=== PATIENT | male | born 1950 | race Caucasian/White ===

== ENCOUNTER 2021-02-05 20:24 | Emergency (ER) | payer MEDICARE, SELFPAY ==
[2021-02-05 20:30] VITALS: BP 163/89; PULSE 73; RESP 18; TEMP 36.4; O2SAT 100
--- NOTE | 2021-02-05 20:38 | ED.GENADULT ---
HPI - General Adult General Chief complaint: Urogenital-Male Stated complaint: Unable to urinate Time Seen by Provider: 02/05/21 20:27 History of Present Illness HPI narrative: Patient is 70-year-old gentleman who presents the emergency department chief complaint of urinary retention. The patient reports he has had no problems before with urinary retention is regarding catheter before in the past patient reports he sees urology. Patient states he needs a catheter badly Related Data Allergies Allergy/AdvReac Type Severity Reaction Status Date / Time No Known Allergies Allergy Mild Unverified 07/22/11 22:27 Review of Systems Review of Systems: Narrative: A 10 system review of systems was completed on the patient and is negative except for what is stated in the HPI. Nursing and ancillary documentation was reviewed. [facility] Family History Family History Mother Patient's mother is Sibling Patient's sister is in good health Father Acute myocardial infarction Social History Social History Smoking status: Never smoker Alcohol intake: never Exam Narrative: Exam Narrative: GENERAL: Well-appearing, well-nourished, and in no acute distress. HEAD: Normocephalic, atraumatic. EYES: PERRLA and EOMI. ENT: Nares clear, no rhinorrhea or epistaxis. Mucous membranes moist. NECK: Supple. CHEST: Clear to auscultation. No respiratory distress. HEART: Regular rate and rhythm. No murmur heard. Normal peripheral pulses. ABDOMEN: Soft, nontender, nondistended, normal active bowel sounds. EXTREMITIES: Normal range of motion. No edema. SKIN: Warm, dry, no rash. NEURO: No focal deficits. Alert and oriented x3. PSYCH: Normal mood and affect. Course Vital Signs Vital signs: Vital Signs Temperature 36.4 C 02/05/21 20:30 Pulse Rate 73 02/05/21 20:30 Respiratory Rate 18 02/05/21 20:30 Blood Pressure 163/89 H 02/05/21 20:30 Pulse Oximetry 100 02/05/21 20:30 Temperature 36.4 C 02/05/21 20:30 Pulse Rate 73 02/05/21 20:30 Respiratory Rate 18 02/05/21 20:30 Blood Pressure 163/89 H 02/05/21 20:30 Pulse Oximetry 100 02/05/21 20:30 Medical Decision Making Vital Signs Vital Signs: Vital Signs Temperature 36.4 C 02/05/21 20:30 Pulse Rate 73 02/05/21 20:30 Respiratory Rate 18 02/05/21 20:30 Blood Pressure 163/89 H 02/05/21 20:30 Pulse Oximetry 100 02/05/21 20:30 Temperature 36.4 C 02/05/21 20:30 Pulse Rate 73 02/05/21 20:30 Respiratory Rate 18 02/05/21 20:30 Blood Pressure 163/89 H 02/05/21 20:30 Pulse Oximetry 100 02/05/21 20:30 Lab Data Labs: Lab Results 02/05/21 Range/Units 20:42 Urine Color Straw (Yellow) Urine Appearance Clear (Clear) Urine pH 7.0 (5.0-9.0) Ur Specific [place] 1.008 (1.001-1.035) Urine Protein Negative (Negative) mg/dL Urine Glucose (UA) Negative (Negative) mg/dL Urine Ketones Trace (Negative) mg/dL Ur Blood (Man) 3+ H (Negative) Urine Nitrate Negative (Negative) Urine Bilirubin Negative (Negative) Urine Urobilinogen Negative (<2.0) mg/dL Leukocyte Esterase Rfl Negative (Negative) JEREMY/UL Urine RBC >75 H (0-2) /hpf Urine WBC 0-3 /hpf Discharge Plan Discharge Clinical Impression: Acute urinary retention Patient Disposition: Home, Self-Care Condition: Stable Instructions: Antibiotic Form, Mendoza Catheter Placement and Care (ED), Urinary Retention in Men (ED) Prescriptions: No Action finasteride 5 mg tablet 5 mg PO DAILY Qty: 90 RF: 4 rosuvastatin 10 mg tablet 10 mg PO DAILY Qty: 90 RF: 4 tamsulosin 0.4 mg capsule 0.4 mg PO DAILY Qty: 90 RF: 4 Follow-up/Referrals: Luis Carlos Louie MD [Primary Care Provider] - Time of Disposition: 21:03
[2021-02-05 20:54] LABS: Add Urine Microscopic? YES; Appearance Urine Clear (Clear); Bilirubin Urine Negative (Negative); Blood Urine 3+ (Negative); Color Urine Straw (Yellow); Glucose Urine UA Negative (Negative); Ketones Urine Trace mg/dL (Negative); Leukocyte Esterase Ur Negative LEU/UL (Negative); Nitrate Urine Negative (Negative); Protein Urine Negative (Negative); RBC Urine >75 /hpf (0-2); Specific Grav Ur 1.008 (1.001-1.035); Urobilinogen Urine Negative mg/dL (<2.0); WBC Urine 0-3 /hpf
[2021-02-05 21:30] VITALS: BP 160/71; PULSE 70; RESP 16; O2SAT 100
== END 2021-02-05 21:30 | disposition home or self-care (01) ==
PROVIDERS: Emergency Provider Emergency Medicine; PCP Internal Medicine
DX: R33.9 Retention of urine, unspecified (principal)
CPT/HCPCS: 51702; 81001; 99283

== ENCOUNTER 2022-06-04 10:09 | Emergency (ER) | payer MEDICARE, SELFPAY ==
[2022-06-04 10:12] VITALS: BP 148/77; PULSE 101; RESP 18; TEMP 36.6; O2SAT 99
[2022-06-04 10:43] VITALS: BP 147/81; PULSE 80; RESP 17; O2SAT 98
[2022-06-04 11:17] LABS: Mucus Urine Rare /lpf; RBC Urine 0-2 /hpf (0-2); WBC Urine 0-3 /hpf
--- NOTE | 2022-06-04 11:18 | ED.MALEGU ---
HPI - Male Genitourinary General Chief complaint: Urogenital-Male Stated complaint: urinary retention Time Seen by Provider: 06/04/22 10:48 History of Present Illness HPI Narrative: Patient is a 71-year-old male here for evaluation of urinary retention this morning. Yesterday he had a normal urine stream, but notes this morning he has not had a void yet, and notes some pressure/fullness in his suprapubic region. notes that he has a history of frequent episodes of urinary retention due to his enlarged prostate, for which he follows with Dr. Akins, and he has required a Mendoza catheter in the past. At time my evaluation, Mendoza catheter was placed by nursing staff, and patient is now asymptomatic. Denies any fevers, chills, nausea, vomiting, upper abdominal pain. Related Data Allergies Allergy/AdvReac Type Severity Reaction Status Date / Time No Known Allergies Allergy Mild Verified 06/04/22 10:42 Review of Systems Review of Systems: Gen: Denies fevers or chills Eyes: Denies eye pain or visual change ENT: Denies congestion Respiratory: Denies shortness of breath or cough CV: Denies chest pain or palpitations GI: Denies abdominal pain nausea, emesis or diarrhea : Reports urinary retention. Musculoskeletal: Denies back pain or muscle pain Neuro: Denies numbness, tingling, weakness or focal weakness Skin: Denies rash Except as documented, all other systems reviewed and negative PMFSH Past Medical History Medical History Encounter for screening for malignant neoplasm of colon Screening for metabolic disorder Family History Family History Mother Patient's mother is Sibling Patient's sister is in good health Father Acute myocardial infarction Social History Social History Smoking status: Never smoker Alcohol intake: never Exam Narrative: APPEARANCE: Well appearing, no pain in distress, well-nourished. Head: Normocephalic and atraumatic. EYES: PERRLA/EOMI, conjunctivae clear NOSE: No nasal drainage EARS: External ear normal in appearance THROAT: Oropharynx is clear. Mucous membranes are moist. NECK: Supple. No adenopathy, no masses. RESPIRATORY: Airway patent, respirations nonlabored. Clear to auscultation bilaterally, no rales, rhonchi, wheezing. CARDIOVASCULAR: Regular rate and rhythm without murmurs, rubs, or gallops. ABDOMINAL: Normoactive bowel sounds. Soft, nontender, nondistended. No rebound tenderness or guarding. : Mendoza bag in place, draining clear yellow urine MUSCULOSKELETAL: Extremities are warm and well-perfused. Moves all extremities well. No edema. NEURO: Normal speech. No focal neurologic deficits. SKIN: Skin is warm and dry. No rashes. PSYCHIATRIC: Normal affect/mood. Course Vital Signs Vital signs: Vital Signs Temperature 97.8 F 06/04/22 10:12 Pulse Rate 101 H 06/04/22 10:12 Respiratory Rate 18 06/04/22 10:12 Blood Pressure 148/77 H 06/04/22 10:12 Pulse Oximetry 99 06/04/22 10:12 Oxygen Delivery Room Air 06/04/22 10:12 Temperature 97.8 F 06/04/22 10:12 Pulse Rate 65 06/04/22 12:01 Respiratory Rate 18 06/04/22 12:01 Blood Pressure 129/74 06/04/22 12:01 Pulse Oximetry 98 06/04/22 12:01 Oxygen Delivery Room Air 06/04/22 10:12 MDM - Male Genitourinary MDM Narrative Medical decision making narrative: 71-year-old male here for evaluation of urinary retention for the past day. Patient is a history of BPH which is likely the cause, Mendoza placed and patient's pain was relieved. Considered other etiologies but given history, exam have very low suspicion for cauda equina, infectious etiology, constipation induced retention, intra-abdominal mass, trauma, nephrolithiasis, urolithiasis or drug reaction. Patient has follow-up with urology
[2022-06-04 11:20] LABS: Appearance Urine Clear (Clear); Bilirubin Urine Negative (Negative); Blood Urine 1+ (Negative); Color Urine Yellow (Yellow); Glucose Urine UA Negative (Negative); Ketones Urine Trace mg/dL (Negative); Leukocyte Esterase Ur Negative LEU/UL (Negative); Nitrate Urine Negative (Negative); Protein Urine Negative (Negative); Specific Grav Ur 1.025 (1.001-1.035); Urobilinogen Urine 0.2 mg/dL (<2.0)
[2022-06-04 11:38] LABS: Add Urine Microscopic? YES
[2022-06-04 12:01] VITALS: BP 129/74; PULSE 65; RESP 18; O2SAT 98
== END 2022-06-04 12:03 | disposition home or self-care (01) ==
PROVIDERS: Physician Assistant; Emergency Provider Emergency Medicine; PCP Family Medicine
DX: R33.9 Retention of urine, unspecified (principal)
CPT/HCPCS: 51702; 81001; 99283

== ENCOUNTER 2022-06-17 06:12 | Emergency (ER) | payer MEDICARE, SELFPAY ==
[2022-06-17 06:15] VITALS: BP 154/75; PULSE 105; RESP 18; TEMP 36.1; O2SAT 100
--- NOTE | 2022-06-17 07:22 | PC.NURSE ---
Report given to RODRIGO Phelps
[2022-06-17 07:23] LABS: Appearance Urine Clear (Clear); Bilirubin Urine 1+ (Negative); Blood Urine 2+ (Negative); Color Urine Yellow (Yellow); Glucose Urine UA Negative (Negative); Ketones Urine 3+ mg/dL (Negative); Leukocyte Esterase Ur Negative LEU/UL (Negative); Nitrate Urine Negative (Negative); Protein Urine 1+ mg/dL (Negative); Urobilinogen Urine 0.2 mg/dL (<2.0); pH Urine 5.5 (5.0-9.0)
[2022-06-17 07:31] LABS: Mucus Urine Rare /lpf; Squamous Epithelial Cell Urine Rare /hpf (Few)
[2022-06-17 07:33] VITALS: BP 148/72; PULSE 80; RESP 16; O2SAT 98
[2022-06-17 07:38] LABS: Add Urine Microscopic? YES
[2022-06-17 08:37] VITALS: BP 144/73; PULSE 77; RESP 16; O2SAT 98
--- NOTE | 2022-06-17 08:55 | ED.MALEGU ---
HPI - Male Genitourinary General Chief complaint: Urogenital-Male Stated complaint: Urinary Retention Time Seen by Provider: 06/17/22 07:03 History of Present Illness HPI Narrative: Patient is a 71-year-old male who presents ER with acute urinary retention. Had similar issues couple weeks ago had a Mendoza catheter which was subsequently removed. Reports last night he could only dribble when he tried to urinate and he had increased suprapubic discomfort. No fevers or chills or sweats. No burning urination. He is known to have an enlarged prostate. He takes both finasteride and Flomax. No blood in his urine. Related Data Allergies Allergy/AdvReac Type Severity Reaction Status Date / Time No Known Allergies Allergy Mild Verified 06/17/22 07:20 Review of Systems Review of Systems: All systems reviewed & are unremarkable except as noted in HPI and below Constitutional: Constitutional: Denies chills, Denies fatigue and Denies fever(s) Gastrointestinal: Gastrointestinal: Reports abdominal pain, Denies nausea and Denies vomiting Genitourinary: Genitourinary: Denies hematuria, Reports oliguria, Denies dysuria and Denies urinary frequency [facility] Past Medical History Medical History (Updated 06/17/22 @ 08:58 by Louie Lopez MD) BPH (benign prostatic hyperplasia) Encounter for screening for malignant neoplasm of colon Screening for metabolic disorder Family History Family History Mother Patient's mother is Sibling Patient's sister is in good health Father Acute myocardial infarction Social History Social History Smoking status: Never smoker Alcohol intake: never Exam Narrative: GENERAL: Well-appearing, well-nourished, and in no acute distress. HEAD: Normocephalic, atraumatic. CHEST: Clear to auscultation. No respiratory distress. HEART: Regular rate and rhythm. Normal peripheral pulses. ABDOMEN: Soft, nontender, nondistended EXTREMITIES: Normal range of motion. No edema. NEURO: Alert and oriented x3. PSYCH: Normal mood and affect. Course Course Emergency Course: Mendoza catheter placed with about 300 mL of urine coming out. Patient will keep Mendoza catheter in place and be discharged. Recommend follow-up with urology. Urine sent for culture. Vital Signs Vital signs: Vital Signs Temperature 97 F L 06/17/22 06:15 Pulse Rate 105 H 06/17/22 06:15 Respiratory Rate 18 06/17/22 06:15 Blood Pressure 154/75 H 06/17/22 06:15 Pulse Oximetry 100 06/17/22 06:15 Oxygen Delivery Room Air 06/17/22 06:15 Temperature 97 F L 06/17/22 06:15 Pulse Rate 77 06/17/22 08:37 Respiratory Rate 16 06/17/22 08:37 Blood Pressure 144/73 H 06/17/22 08:37 Pulse Oximetry 98 06/17/22 08:37 Oxygen Delivery Room Air 06/17/22 06:15 MDM - Male Genitourinary Lab Data Labs: Lab Results 06/17/22 Range/Units 07:00 Urine Color Yellow (Yellow) Urine Appearance Clear (Clear) Urine pH 5.5 (5.0-9.0) Ur Specific [place] 1.020 (1.001-1.035) Urine Protein 1+ H (Negative) mg/dL Urine Glucose (UA) Negative (Negative) mg/dL Urine Ketones 3+ H (Negative) mg/dL Ur Blood (Man) 2+ H (Negative) Urine Nitrate Negative (Negative) Urine Bilirubin 1+ H (Negative) Urine Urobilinogen 0.2 (<2.0) mg/dL Leukocyte Esterase Rfl Negative (Negative) JEREMY/UL Urine RBC 3-5 H (0-2) /hpf Urine WBC 7-9 H /hpf Ur Squamous Epith Cells Rare (Few) /hpf Urine Mucus Rare /lpf Urine Characteristics Cloudy Discharge Plan Discharge Clinical Impression: Acute urinary retention Patient Disposition: Home, Self-Care Condition: Stable Instructions: Acute Urinary Retention in Women (ED) Additional Instructions: Return to the ER if you have ches
[2022-06-17 09:49] VITALS: BP 150/76; PULSE 76; RESP 16; O2SAT 99
== END 2022-06-17 09:51 | disposition home or self-care (01) ==
PROVIDERS: Emergency Medicine; Emergency Provider Emergency Medicine; PCP Family Medicine
DX: N40.1 Benign prostatic hyperplasia with lower urinary tract symptoms (principal); R33.8 Other retention of urine
CPT/HCPCS: 51702; 81001; 87086; 99283

== ENCOUNTER 2023-04-13 08:12 | Outpatient (CLI) | payer MEDICARE, SELFPAY ==
[2023-04-13 18:32] LABS: Alanine Aminotransferase 19 U/L (6-50); Albumin Level 3.9 g/dL (3.5-5.1); Alkaline Phosphatase 69 U/L (38-126); Anion Gap 7 mmol/L (8-16); Aspartate Amino Transferase 28 U/L (17-59); Bilirubin,Total 1.9 mg/dL (0.2-1.3); Blood Urea Nitrogen 17 mg/dL (9-20); Calcium 8.8 mg/dL (8.4-10.2); Carbon Dioxide 30 mmol/L (22-30); Chloride 102 mmol/L (98-107); Cholesterol 153 mg/dL (0-200); Estimated Glomerular Filt Rate > 60; Glucose 86 mg/dL (65-110); HDL Direct 60 mg/dL; Sodium 139 mmol/L (137-145); Triglycerides 69 mg/dL (<150)
[2023-04-13 18:42] LABS: LDL Cholesterol Direct 76 mg/dL
== END 2023-04-13 08:13 | disposition home or self-care (01) ==
LOC: ANHGOSHLAB 08:13
PROVIDERS: PCP Family Medicine; Visit Provider Family Medicine
DX: E78.5 Hyperlipidemia, unspecified (principal); Z13.228 Encounter for screening for other metabolic disorders
CPT/HCPCS: 36415; 80053; 80061

== ENCOUNTER 2024-04-16 08:10 | Outpatient (CLI) | payer MEDICARE, SELFPAY ==
[2024-04-16 19:23] LABS: Alanine Aminotransferase 15 U/L (6-50); Albumin Level 3.9 g/dL (3.5-5.1); Alkaline Phosphatase 65 U/L (38-126); Anion Gap 6 mmol/L (4-12); Aspartate Amino Transferase 27 U/L (17-59); Bilirubin,Total 1.5 mg/dL (0.2-1.3); Blood Urea Nitrogen 17 mg/dL (9-20); Calcium 8.9 mg/dL (8.4-10.2); Carbon Dioxide 27 mmol/L (22-30); Chloride 107 mmol/L (98-107); Cholesterol 132 mg/dL (0-200); Estimated Glomerular Filt Rate > 60; Glucose 82 mg/dL (65-110); HDL Direct 50 mg/dL; Potassium 3.9 mmol/L (3.4-5.0); Sodium 140 mmol/L (137-145); Triglycerides 61 mg/dL (<150)
[2024-04-16 19:33] LABS: LDL Cholesterol Direct 77 mg/dL
== END 2024-04-16 08:11 | disposition home or self-care (01) ==
LOC: ANHGOSHLAB 08:13
PROVIDERS: PCP Family Medicine; Visit Provider Family Medicine
DX: E78.5 Hyperlipidemia, unspecified (principal); Z13.228 Encounter for screening for other metabolic disorders; Z13.220 Encounter for screening for lipoid disorders
CPT/HCPCS: 36415; 80053; 80061

== ENCOUNTER 2025-04-01 08:46 | Outpatient (CLI) | payer MEDICARE, SELFPAY ==
--- OUTSIDE RECORDS SUMMARY | 2025-04-01 09:09 | XMS_ITS | Continuity of Care Document ---
Author Organization [facility] Address [address] [place] [address] Exec utive [facility] [address] [place] [address] Phone Care Team Providers Care Automation Test Developer Name Role Phone Jovita Ocampo Unavailable Unavailable Advance Directives Directive Yes / No Effective Date File Name No Information Encounters Encounter Description Practice Location Reason(s) For Visit Diagnoses Date Provider Providers Copied on Encounter [facility], [id number] [place] [address] [address], [place], [place], [id number], [place] tel:[phone] [facility] No Information 5 Damaris Hussein. [address] , [address], [place], [address], [place]. tel:[phone] Family History Family Member Type Diagnosis Age At Onset No Information Payers Payer name Insurance type Covered green party ID Authoriza tion(s) No Information Social History Type Description Quantity Date Captured Comments Sex Male Smoking Status No Information Chief Complaint And Reason For Visit No Information Reason For Referral Reason For Referral No Information History Of Present Illness Encounter Date Complaint History Of Prese nt Illness No Information Functional Status Date Functional Assessmen t No Information Instructions Date Instruction Additional Infor mation No Information Assessments Type Assessment Date No Information Patient Care Teams Name Effective Dates (start - stop) Status Members No Information
--- OUTSIDE RECORDS SUMMARY | 2025-04-01 09:09 | XMS_ITS | Clinical Summary ---
Author Organization [facility] Address [address] [place] [address] Care Team Providers Care Upsetter Name Role Phone Unavailable Primary Care Provider Unavailabl e Source Comments [facility],non-owned Affiliates and Associated Physician Practices is amultiple site organization consisting of ambulatory clinics and hospital sitesin [place], [place], [place] and [place]. This disclosure is being madepursuant to the Care Everywhere program and may not contain all information available regarding this patient. Last updated 18.[facility] Social History Tobacco Use Types Packs/Day Years Used Date Smoking Tobacco: Never Assessed Sex and Gender Information Value Date Recorded Sex Assigned at Not on file Legal Sex Male 12:21 PM [employer] AGENT Gender Identity Not on file Sexual Orientation Not on file Plan of Treatment Health Maintenance Due Date Last Done Comments HEPATITIS C SCREENING 09/03/1966 DTAP/TDAP/TD VACCINES (1 - Tdap) 1967 PNEUMOCOCCAL VACCINE 50+ (1 of 1 - PCV) 1998 ZOSTER VACCINE (1 of 2) 1998 Respiratory Syncytial Virus (RSV) Vaccine Pt: or over 60 yrs (1 - 1-dose 75+ series) 2023 COVID-19 VACCINE ( - 2023-2 5 season) 2024 DEPRESSION SCREENING 10/22/2024 INFLUENZA VACCINE (Season Ended) 2025 HEPATITIS B VACCINE Aged Out No longe r eligible based on patient's age to complete this topic HIB VACCINE Aged Out No longer eligi ble based on patient's age to complete this topic HPV VACCINE Aged Out No longer eligi ble based on patient's age to complete this topic MENINGOCOCCAL (Group B) VACC INE SHARED DECISION-MAKING Aged Out No longer eligibl e based on patient's age to complete this topic MENINGOCOCCAL GROUPS A/C/Y/W VACCINE Aged Out No longer eligible b ased on patient's age to complete this topic Insurance [employer]
--- OUTSIDE RECORDS SUMMARY | 2025-04-01 09:09 | XMS_ITS | Encounter Summary ---
Author Organization [facility] Address [address] [place] [address] Care Team Providers Care Welfare Administrator Name Role Phone Unavailable Primary Care Provider Unavailabl e Encounter Details Date Type Department Care Team (Late st Contact Info) Description 11/07/2022 Lab Requisition [facility] [address] [place] [address] Daisha Sin MD [address] [place], [place] [id number] Illness, unspecified Social History Tobacco Use Types Packs/Day Years Used Date Smoking Tobacco: Never Assessed Sex and Gender Information Value Date Recorded Sex Assigned at Not on file Legal Sex Male 12:21 PM INTERNAL COMMUNICATIONS WRITER Gender Identity Not on file Sexual Orientation Not on file documented as of this encounter Plan of Treatment Not on file documented as of this encounter Procedures Procedure Name Priority Date/Time Associated Diagnosis Comments PATH CONSULT ON REFERRED CASE Routine 11/02/2022 7:09 AM INTERNAL COMMUNICATIONS WRITER Illness, unspecified documented in this encounter Results * PATH CONSULT ON REFERRED CASE (11/02/2022 7:09 AM INTERNAL COMMUNICATIONS WRITER) Final Diagnosis A. PROSTATE, LLB, NEEDLE BIOPSY (OSC: [id number]; 11/02/2022): - Benign prostatic tissue B. PROSTATE, LLM, NEEDLE BIOPSY (OSC: [id number]; 11/02/2022): - Benign prostatic tissue C. PROSTATE, LLA, NEEDLE BIOPSY (OSC: [id number]; 11/02/2022): - Benign prostatic tissue D. PROSTATE, LB, NEEDLE BIOPSY (OSC: [id number]; 11/02/2022): - Benign prostatic tissue E. PROSTATE, LM, NEEDLE BIOPSY (OSC: [id number]; 11/02/2022): - Benign prostatic tissue F. PROSTATE, LA, NEEDLE BIOPSY (OSC: S23-118; 11/02/2022): - Benign prostatic tissue G. PROSTATE, RB, NEEDLE BIOPSY (OSC: S23-118; 11/02/2022): - Benign prostatic tissue H. PROSTATE, RM, NEEDLE BIOPSY (OSC: S23-118; 11/02/2022): - Benign prostatic tissue I. PROSTATE, RA, NEEDLE BIOPSY (OSC: S23-118; 11/02/2022): - Benign prostatic tissue J. PROSTATE, RLB, NEEDLE BIOPSY (OSC: S23-118; 11/02/2022): - Benign prostatic tissue K. PROSTATE, RLM, NEEDLE BIOPSY (OSC: S23-118; 11/02/2022): - Benign prostatic tissue L. PROSTATE, RLA, NEEDLE BIOPSY (OSC: S23-118; 11/02/2022): - Benign prostatic tissue 11/07/2022 5:17 PM [facility] at [address] INTERNAL COMMUNICATIONS WRITER Microscopic Description and Comment Microscopic examination substantiates the final diagnosis. 11/07/2022 5:17 PM [facility] Clinical History PSA 28.0, PROSTATE VOLUME 70.1 11/07/2022 5:17 PM [facility] Materials Received Received are three prepared slides from [facility] labeled [id number] (A1-C1). This is a 12-part prostate biopsy. All materials will be returned. 11/07/2022 5:17 PM [facility] Disclaimer The performance characteristics of all immunohistochemical and indirect immunofluorescence stains (if any) cited in this report were determined by the Histopathology Laboratory of [facility]. Some of these tests were developed by our own laboratory and have not been cleared or approved by the US Food and Drug Administration. The FDA does not require this test to go through premarket FDA review. These tests are used for clinical purposes. They should not be regarded as investigational or for research. This laboratory is certified under the Clinical Laboratory Improvement Amendments (CLIA) as qualified to perform high complexity clinical laboratory testing. This case has been personally reviewed and interpreted by the attending (teaching) pathologist. 11/07/2022 5:17 PM [facility] Case Report Surgical Pathology Report Case: [id number] Authorizing Provider: Daisha Sin MD Collected: 11/02/2022 07:09 AM Ordering Location: [facility] Received: 11/07/2022 07:09 AM Pathologist: Jael Stinson MD Specimen: Slide Consultation 11/07/2022 5:17 PM INTERNAL COMMUNICATIONS WRITER [facility] Embedded Images 11/07/2022 5:17 PM INTERNAL COMMUNICATIONS WRITER [facility] Pathology/Cytolo gy SURGICAL PATHOLOGY CONSULTATION AND REPORT ON REFERRED SLIDES PREPARED ELSEWHERE / Unknown 11/02/2022 7:09 AM INTERNAL COMMUNICATIONS WRITER 11/07/2022 7:09 AM INTERNAL COMMUNICATIONS WRITER us Daisha Sin MD LAB - PATHOLOGY/CYTOLOGY ORDERAB LES Final Result [facility] [address] [phone] documented in this encounter Visit Diagnoses Diagnosis Illness, unspecified documented in this encounter
[2025-04-01 12:27] LABS: Basophils Absolute Auto 0.1 K/mm3 (0.0-0.1); Basophils Percent Auto 1.1 % (0.2-1.2); Eosinophils Percent Auto 0.9 % (0-4.4); Hematocrit 41.9 % (42.0-52.0); Hemoglobin 13.3 g/dL (14.0-18.0); Immature Granulocyte Absolute 0.02 K/mm3 (0.00-0.031); Immature Granulocyte Percent A 0.4 % (0-0.5); Lymphocytes Absolute Auto 0.91 K/mm3 (0.9-3.2); Lymphocytes Percent Auto 20.2 % (18.3-44.2); Mean Corpuscular HGB Conc 31.7 g/dl (32-36); Mean Corpuscular Hemoglobin 28.5 pg (26-34); Mean Corpuscular Volume 89.9 fl (80-100); Mean Platelet Volume 9.5 fl (7.4-10.4); Monocytes Absolute Auto 0.5 K/mm3 (0.1-0.6); Neutrophils Percent Auto 67.4 % (45.5-73.1); Platelet Count Result 173 k/mm3 (150-375); Red Blood Count 4.66 M/mm3 (4.6-6.20); Red Cell Distribution Width 13.2 % (11.5-14.5); White Blood Count 4.5 K/mm3 (4.5-10.0)
[2025-04-01 12:47] LABS: Alanine Aminotransferase 17 U/L (6-50); Alkaline Phosphatase 68 U/L (38-126); Anion Gap 7 mmol/L (4-12); Aspartate Amino Transferase 47 U/L (17-59); Bilirubin,Total 2.2 mg/dL (0.2-1.3); Blood Urea Nitrogen 16 mg/dL (9-20); Calcium 9.1 mg/dL (8.4-10.2); Carbon Dioxide 25 mmol/L (22-30); Chloride 107 mmol/L (98-107); Cholesterol 137 mg/dL (0-200); Estimated Glomerular Filt Rate > 60; Glucose 101 mg/dL (65-110); HDL Direct 59 mg/dL; Potassium 3.8 mmol/L (3.4-5.0); Sodium 139 mmol/L (137-145); Total Protein 6.7 g/dL (6.3-8.2); Triglycerides 57 mg/dL (<150)
[2025-04-01 12:59] LABS: LDL Cholesterol Direct 53 mg/dL
== END 2025-04-01 08:47 | disposition home or self-care (01) ==
PROVIDERS: PCP Clinical Nurse Specialist; Visit Provider Clinical Nurse Specialist
DX: E78.5 Hyperlipidemia, unspecified (principal); Z13.228 Encounter for screening for other metabolic disorders
CPT/HCPCS: 36415; 80053; 80061; 85025

== ENCOUNTER 2025-10-01 10:41 | Outpatient (CLI) | payer MEDICARE, SELFPAY ==
[2025-10-01 18:54] LABS: Cholesterol 155 mg/dL (0-200); HDL Direct 68 mg/dL; Triglycerides 74 mg/dL (<150)
[2025-10-01 19:06] LABS: Hematocrit 44.8 % (42.0-52.0); Hemoglobin 14.1 g/dL (14.0-18.0); Immature Granulocyte Percent A 0.2 % (0-0.5); Lymphocytes Absolute Auto 1.17 K/mm3 (0.9-3.2); Mean Corpuscular HGB Conc 31.5 g/dl (32-36); Mean Corpuscular Hemoglobin 29.1 pg (26-34); Mean Corpuscular Volume 92.4 fl (80-100); Nucleated Red Blood Cells Absolute Auto 0.000 K/mm3 (0.0-0.012); Nucleated Red Blood Cells Perc 0.0 % (0.0-0.2); Platelet Count Result 187 k/mm3 (150-375); Red Blood Count 4.85 M/mm3 (4.6-6.20); White Blood Count 5.3 K/mm3 (4.5-10.0)
[2025-10-01 19:34] LABS: Prostate Specific Antigen 5.6 ng/mL (< OR = 4.0); Thyroid Stimulating Hormone 1.420 uIU/mL (0.465-4.680)
[2025-10-01 19:55] LABS: Iron 112 ug/dL (49-181)
[2025-10-01 20:04] LABS: Percent Iron Saturation 30 % (20-50)
[2025-10-01 20:09] LABS: Vitamin B12 220.0 pg/mL (239-931)
[2025-10-01 20:32] LABS: Ferritin 65.10 ng/mL (11.1-264)
== END 2025-10-01 10:42 | disposition home or self-care (01) ==
LOC: ANHGOSHLAB 10:42
DX: E78.5 Hyperlipidemia, unspecified (principal); E55.9 Vitamin D deficiency, unspecified; N40.0 Benign prostatic hyperplasia without lower urinary tract symptoms; R79.89 Other specified abnormal findings of blood chemistry; R53.83 Other fatigue
CPT/HCPCS: 36415; 80061; 82306; 82607; 82728; 82746; 83540; 83550; 84153; 84443; 85025